=== PATIENT | male | born 1985 | race Caucasian/White ===

== ENCOUNTER 2018-02-17 10:29 | Emergency (ER) | payer BC ==
[~2018-02-17] VITALS: Ht 177.8 cm; Wt 84.4 kg
--- NOTE | 2018-02-17 11:00 | PHYS DOC ---
Adult General Chief Complaint Chief Complaint: CHEST PAIN HPI HPI Patient is a very pleasant 32-year-old male who presents for evaluation of left- sided chest wall pain radiating to the left arm which started yesterday and became worse today. He states that deep breaths, movement of the chest wall, leaning forward, or movement of the left arm make the pain worse. Food and drink does not have any affect. He reports similar discomfort intermittently over the last few years. He states the pain has never been bad enough to bring him to the emergency department. A former smoker. He denies any significant past medical history and states that he takes no prescribed medicines. He is alert and oriented 4, calm, and appears to be no distress. He denies fevers or chills, nausea or vomiting, hemoptysis, productive cough, dizziness, syncope, palpitations, abdominal or back pain. Review of Systems Review of Systems Constitutional: Denies fever or chills [] Eyes: Denies change in visual acuity, redness, or eye pain [] HENT: Denies nasal congestion or sore throat [] Respiratory: Denies cough or shortness of breath [] Cardiovascular: No additional information not addressed in HPI [] +cp GI: Denies abdominal pain, nausea, vomiting, bloody stools or diarrhea [] : Denies dysuria or hematuria [] Musculoskeletal: Denies back pain or joint pain [] Integument: Denies rash or skin lesions [] Neurologic: Denies headache, focal weakness or sensory changes [] Endocrine: Denies polyuria or polydipsia [] All other systems were reviewed and found to be within normal limits, except as documented in this note. Allergies Allergies Allergies Coded Allergies Type Severity Reaction Last Updated Verified No Known Drug Allergies 02/17/18 No Physical Exam Physical Exam Constitutional: Well developed, well nourished, no acute distress, non-toxic appearance. [] HENT: Normocephalic, atraumatic, bilateral external ears normal, oropharynx moist, no oral exudates, nose normal. [] Eyes: PERRLA, EOMI, conjunctiva normal, no discharge. [] Neck: Normal range of motion, no tenderness, supple, no stridor. [] Cardiovascular:Heart rate regular rhythm, no murmur [] Lungs & Thorax: Bilateral breath sounds clear to auscultation [] Abdomen: Bowel sounds normal, soft, no tenderness, no masses, no pulsatile masses. [] Skin: Warm, dry, no erythema, no rash. [] Back: No tenderness, no CVA tenderness. [] Extremities: No tenderness, no cyanosis, no clubbing, ROM intact, no edema. [] Neurologic: Alert and oriented X 3, normal motor function, normal sensory function, no focal deficits noted. [] Psychologic: Affect normal, judgement normal, mood normal. [] Current Patient Data Vital Signs Vital Signs Date Time Temp Pulse Resp B/P (MAP) Pulse Ox O2 Delivery O2 Flow Rate FiO2 02/17/18 10:34 97.8 60 16 97 Room Air Lab Results Laboratory Tests Test 02/17/18 10:43 02/17/18 10:48 Urine Opiates Screen Neg Urine Methadone Screen Neg Urine Barbiturates Neg Urine Phencyclidine Screen Neg Urine Amphetamine/Methamphetamine Neg Urine Benzodiazepines Screen Neg Urine Cocaine Screen Neg Urine Cannabinoids Screen Neg Urine Ethyl Alcohol Neg White Blood Count 5.8 x10^3/uL Red Blood Count 5.11 x10^6/uL Hemoglobin 14.5 g/dL Hematocrit 43.3 % Mean Corpuscular Volume 85 fL Mean Corpuscular Hemoglobin 28 pg Mean Corpuscular Hemoglobin Concent 34 g/dL Red Cell Distribution Width 13.3 % Platelet Count 316 x10^3/uL Neutrophils (%) (Auto) 62 % Lymphocytes (%) (Auto) 25 % Monocytes (%) (Auto) 11 % Eosinophils (%) (Auto) 1 % Basophils (%) (Auto) 1 % Neutrophils # (Auto) 3.6 x10^3uL Lymphocytes # (Auto) 1.5 x10^3/uL Monocytes # (Auto) 0.6 x10^3/uL Eosinophils # (Auto) 0.1 x10^3/uL Basophils # (Auto) 0.0 x10^3/uL D-Dimer ([place]) 0.28 mg/L Sodium Level 139 mmol/L Potassium Level 4.3 mmol/L Chloride Level 103 mmol/L Carbon Dioxide Level 27 mmol/L Anion Gap 9 Blood Urea Nitrogen 13 mg/dL Creatinine 1.1 mg/dL Estimated GFR (Cockcroft-Gault) 78.1 BUN/Creatinine Ratio 12 Glucose Level 97 mg/dL Calcium Level 10.0 mg/dL Magnesium Level 2.3 mg/dL Total Bilirubin 0.7 mg/dL Aspartate Amino Transf (AST/SGOT) 22 U/L Alanine Aminotransferase (ALT/SGPT) 55 U/L Alkaline Phosphatase 75 U/L Creatine Kinase 126 U/L Creatine Kinase MB (Mass) 0.5 ng/mL Creatine Kinase MB Relative Index 0.4 % Troponin I Quantitative < 0.017 ng/mL Total Protein 8.1 g/dL Albumin 4.5 g/dL Albumin/Globulin Ratio 1.3 Lipase 172 U/L EKG EKG Normal sinus rhythm, rate of 61, no acute ischemic findings noted, possible early repolarization noted, no STEMI Radiology/Procedures Radiology/Procedures CXR (prelim): no acute cardiopulmonary pathology noted Course & Med Decision Making Course & Med Decision Making Pertinent Labs and Imaging studies reviewed. (See chart for details) @1215 - Patient updated on lab and imaging results. His workup today fails to reveal any emergent pathology. He states he is feeling better. I suggested to the patient that his symptoms could be related to costochondritis, pleurisy, muscle strain, or other pathology. His pain is reproducible with palpation and movement and does not appear to be cardiac at this time. His vital signs are stable. Advised patient to follow up with his PCP in the next 2-3 days. He'll go home with a prescription for prednisone and Ultram. He is stable for discharge at this time. Advised that the patient return to the emergency Department immediately for any new or worsening symptoms. The patient expressed verbal understanding. Dragon Disclaimer Dragon Disclaimer This electronic medical record was generated, in whole or in part, using a voice recognition dictation system. Departure Departure: Impression: Primary Impression: Chest wall pain Disposition: HOME, SELF-CARE Condition: STABLE Referrals: JAN MILLER DO (PCP) Patient Instructions: Chest Pain (Nonspecific), Chest Wall Pain Additional Instructions: Follow-up with their primary care physician in the next 2-3 days. Return to the Emergency Department immediately for new or worsening symptoms. Take the prescribed medicine as directed. Scripts Prednisone (PREDNISONE) 20 Mg Tablet 2 TAB PO DAILY for 5 Days, #10 TAB Prov: EMI LONG DO 02/17/18 Tramadol Hcl (ULTRAM) 50 Mg Tablet 50 MG PO PRN Q6HRS PRN for PAIN, #15 TAB Prov: EMI LONG DO 02/17/18 EMI LONG DO Feb 17, 2018 11:00
[2018-02-17 11:06] LABS: BASO % 1 % (0-3); EOS # 0.1 x10^3/uL (0.0-0.7); EOS % 1 % (0-3); HEMATOCRIT 43.3 % (39.0-53.0); HEMOGLOBIN 14.5 g/dL (13.0-17.5); LYMPH # 1.5 x10^3/uL (1.0-4.8); LYMPH % 25 % (24-48); MEAN CORPUSCULAR HEMOGLOBIN 28 pg (25-35); MEAN CORPUSCULAR HGB CONC 34 g/dL (31-37); MEAN CORPUSCULAR VOLUME 85 fL (79-100); MONO # 0.6 x10^3/uL (0.0-1.1); MONO % 11 % (0-9); NEUT # 3.6 x10^3uL (1.8-7.7); NEUT % 62 % (31-73); PLATELET COUNT 316 x10^3/uL (140-400); RED BLOOD COUNT 5.11 x10^6/uL (4.30-5.70); RED CELL DISTRIBUTION WIDTH 13.3 % (11.5-14.5); WHITE BLOOD COUNT 5.8 x10^3/uL (4.0-11.0)
[2018-02-17 11:13] LABS: BARBITURATES NEG (NEG); BENZODIAZEPINES NEG (NEG); CANNABINOIDS NEG (NEG); COCAINE NEG (NEG); METHADONE NEG (NEG); OPIATES NEG (NEG); PHENCYCLIDINE NEG (NEG)
[2018-02-17 11:16] LABS: AMPHETAMINE/METHAMPHETAMINE NEG (NEG)
[2018-02-17 11:27] LABS: ALBUMIN 4.5 g/dL (3.4-5.0); ALBUMIN/GLOBULIN RATIO 1.3 (1.0-1.7); CREATININE 1.1 mg/dL (0.7-1.3); GFR 78.1; MAGNESIUM 2.3 mg/dL (1.8-2.4); POTASSIUM 4.3 mmol/L (3.5-5.1); TOTAL BILIRUBIN 0.7 mg/dL (0.2-1.0); TOTAL PROTEIN 8.1 g/dL (6.4-8.2)
--- NOTE | 2018-02-17 11:44 | EKG ---
[address] [address] Test Date: 2018-02-17 Test Time: 10:39:52 Pat Name: CECILIA SOMMERS Department: Room: Gender: M [employer]: : [id number] Requested By: EMI LONG Order Number: [id number] Reading MD: Josse Wylie MD Measurements Intervals [place] Rate: 61 P: 40 [place]: 156 QRS: 62 QRSD: 98 T: 28 QT: 390 QTc: 394 Interpretive Statements SINUS RHYTHM Electronically Signed On 02-17-2018 12:02:02 CDT by Josse Wylie MD
[2018-02-17 12:00] VITALS: BP 126/77
[2018-02-17] MEDS ORDERED: PRED20TA PO (12:23)
[2018-02-17] MEDS ORDERED: TRAM-48 PO (12:23)
--- NOTE | 2018-02-17 12:47 | RAD ---
EXAM: Chest, single view. HISTORY: Chest pain. COMPARISON: None. FINDINGS: A frontal view of the chest is obtained. There is no infiltrate, pleural effusion or pneumothorax. The heart is normal in size. IMPRESSION: No acute pulmonary finding. Electronically signed by: Nicole Dia MD (02/17/2018 12:44 PM) [place] [id number]
== END 2018-02-17 12:25 | disposition home or self-care (01) ==
LOC: ER 10:29
DX: R07.89 Other chest pain (principal); Z87.891 Personal history of nicotine dependence
CPT/HCPCS: 36415; 71045; 80053; 80307; 82553; 83690; 83735; 84484; 85025; 85379; 93005; 99285-25; G0479